=== PATIENT | male | born 1955 | race Caucasian/White ===

== ENCOUNTER 2021-11-09 16:40 | Emergency (ER) | payer MEDICARE, OTHER, SELFPAY ==
[2021-11-09 16:41] VITALS: BP 172/74; PULSE 72; RESP 16; TEMP 36.4; O2SAT 99; BMI 30.2
--- NOTE | 2021-11-09 17:02 | EX.ED.GUMALE ---
HPI History of Present Illness Chief Complaint: Complaint Informant: patient Pain Onset: Days Context: Gradual Onset Timing: Continuous Worsened by: Nothing Relieved by: Nothing Narrative Narrative: Patient presents with hematuria and lower abdominal pain that has been getting progressively worse over the past few days. Patient had bladder surgery 3 weeks ago to remove bladder cancer. Patient also had a ureteral stent placed at that time. Patient states he has been urinating blood and passing clots from his bladder. Patient states he has pain over the lower abdomen and lower back. Patient describes his pain as sharp at times but constant and aggravating. Patient patient also admits to some nausea and vomiting. Patient denies any hematemesis or coffee-ground emesis. Patient denies any melena or hematochezia. Patient denies any fevers or chills. Patient denies any dysuria. [facility] Medical History (Updated 11/09/21 @ 19:[address] Slim Eller DO) Bladder cancer Diabetes type 2, controlled Hypertension Situs inversus Home Medications aspirin 81 mg PO/SL DAILY 11/09/21 [History Last Taken Unknown] ciprofloxacin HCl 500 mg PO BID #20 tablet 11/09/21 [Rx Last Taken Unknown] glimepiride 2 mg PO BID 11/09/21 [History Last Taken Unknown] lisinopril 20 mg PO DAILY 11/09/21 [History Last Taken Unknown] metformin 500 mg PO BID 11/09/21 [History Last Taken Unknown] metoprolol succinate 50 mg PO DAILY 11/09/21 [History Last Taken Unknown] nitroglycerin 0.4 mg SUBLINGUAL Q5M PRN 11/09/21 [History Last Taken Unknown] semaglutide [Ozempic] 0.5 mg SUBCUT QWEEK 11/09/21 [History Last Taken Unknown] simvastatin 40 mg PO DAILY 11/09/21 [History Last Taken Unknown] Allergy/AdvReac Type Severity Reaction Status Date / Time niacin AdvReac Rash Verified 11/09/21 16:41 [From Niaspan Extended-Release] Surgical History (Updated 11/09/21 @ 17:[address] Slim Eller DO) Hx of arthroscopy of knee Hx of CABG Hx of cataract surgery Hx of cystoscopy S/P ureteral stent placement Social History Smoking Status: Never smoker ROS ROS ED Constitutional Constitutional ED: Denies chills or fever(s) Eyes Eyes: Denies blurry vision or change in vision ENT ENT ED: Denies rhinorrhea or sore throat Cardiovascular Cardiovascular: Denies chest pain or palpitations Respiratory/Chest Respiratory/Chest: Denies cough or dyspnea Gastrointestinal Gastrointestinal: Reports abdominal pain, diarrhea, nausea and vomiting; Denies melena Genitourinary Genitourinary ED: Reports hematuria; Denies dysuria Musculoskeletal Musculoskeletal: Reports back pain; Denies neck pain Integumentary Denies abscess or rash Neurologic Neurologic: Denies headache(s) or weakness Allergic/Immunologic Allergic/Immunologic ED: Denies mouth swelling or urticaria EXAM Physical Exam Const Vital Signs: 11/09/21 16:41 Temperature 97.6 F L Temperature Source Temporal Pulse Rate 72 Respiratory Rate 16 Blood Pressure 172/74 H Blood Pressure Mean 106 Pulse Ox 99 Oxygen Delivery Method Room Air Positive well nourished and well developed General Appearance ED: well developed HEENT Reports moist mucous membranes Neck supple and no JVD Resp normal respiratory effort and clear to auscultation bilaterally Cardio regular rate, regular rhythm and no murmurs GI normal to inspection, nondistended, normoactive bowel sounds and non-distended GI Narrative: There is suprapubic tenderness. There is no rebound or guarding noted. Bowel sounds are normal. Auscultation: normoactive bowel sounds Palpation: soft Rectal Exam: tenderness no CVA tenderness Extremity normal to inspection General Extremety ED: Negative for edema or tenderness General Extremity: Negative for edema Neuro oriented x3, CN's II-XII intact bilaterally and no sensory deficits noted Sensorium / Orientation: alert Motor Exam: strength 5/5 throughout Psych mental status grossly normal Skin no rashes or lesions noted MDM MDM MDM Narrative Medical decision making narrative: Patient was given IV fluids. Patient was given morphine and Zofran. Patient was given a dose of Rocephin here. CBC was within normal limits. PT was INR and PTT was within normal limits. Urinalysis shows a leukocyte esterases of 100 with 50-100 white blood cells. Occult blood was 250 with greater than 100 red blood cells. There is 2+ bacteria. Urine culture was ordered. CT scan of the abdomen pelvis was obtained. There is a right ureteral stent. There is mild pelviectasis and ureteral dilation. There is some periureteral stranding noted. This was interpreted by the radiologist and reviewed by myself. Patient was given a dose of Rocephin here. Patient is able to tolerate p.o. Patient was given a prescription for Cipro. Patient was instructed to follow-up with his urologist and primary care physician when he gets back home. Patient understood and was agreeable with the plan. All questions were answered. Lab Data Attestation: I reviewed the patient's lab results. Labs: Laboratory Results - last 24 hr 11/09/21 11/09/21 11/09/21 17:30 17:35 17:35 WBC 7.2 RBC 5.02 Hgb 14.6 Hct 42.9 MCV 85.5 MCH 29.1 MCHC 34.0 RDW Std Deviation 41.6 RDW Coeff of Nicola 13.3 Plt Count 205 MPV 11.4 Immature Gran % (Auto) 0.400 Neut % (Auto) 67.5 Lymph % (Auto) 23.1 [place] % (Auto) 6.6 Eos % (Auto) 2.0 Baso % (Auto) 0.4 Absolute Neuts (auto) 4.8 Absolute Lymphs (auto) 1.65 Nucleated RBC % 0 PT 13.3 INR 1.0 APTT 26.6 Sodium Potassium Chloride Carbon Dioxide Anion Gap BUN Creatinine Estim Creat Clear Calc Est GFR (MDRD) Af Amer Est GFR (MDRD) Non-Af BUN/Creatinine Ratio Glucose Calcium Total Bilirubin AST ALT Alkaline Phosphatase Total Protein Albumin Globulin Albumin/Globulin Ratio Urine Color Red Urine Clarity Cloudy Urine pH 5.0 Ur Specific [place] 1.020 Urine Protein 100 H Urine Glucose (UA) 250 H Urine Ketones 5 H Urine Occult Blood 250 H Urine Nitrite Negative Urine Bilirubin Negative Urine Urobilinogen Normal Ur Leukocyte Esterase 100 H Urine RBC > 100 SEEN Urine WBC 50-100 SEEN Ur Squamous Epith Cells 0-5 SEEN Urine Bacteria 2+ Urine Mucus 0 SEEN 11/09/21 17:35 WBC RBC Hgb Hct MCV MCH MCHC RDW Std Deviation RDW Coeff of Nicola Plt Count MPV Immature Gran % (Auto) Neut % (Auto) Lymph % (Auto) [place] % (Auto) Eos % (Auto) Baso % (Auto) Absolute Neuts (auto) Absolute Lymphs (auto) Nucleated RBC % PT INR APTT Sodium 138 Potassium 4.1 Chloride 106 Carbon Dioxide 28.0 Anion Gap 4 L BUN 10 Creatinine 1.12 Estim Creat Clear Calc 59.02 Est GFR (MDRD) Af Amer 84 Est GFR (MDRD) Non-Af 69 BUN/Creatinine Ratio 8.9 L Glucose 237 H Calcium 9.8 Total Bilirubin 0.70 AST 20 ALT 35 Alkaline Phosphatase 43 L Total Protein 7.1 Albumin 3.5 Globulin 3.6 Albumin/Globulin Ratio 1.0 Urine Color Urine Clarity Urine pH Ur Specific [place] Urine Protein Urine Glucose (UA) Urine Ketones Urine Occult Blood Urine Nitrite Urine Bilirubin Urine Urobilinogen Ur Leukocyte Esterase Urine RBC Urine WBC Ur Squamous Epith Cells Urine Bacteria Urine Mucus Radiography Diagnostic Testing: Clinical Impression(s) from Imaging Studies Abdomen/Pelvis CT 11/09/21 17:10 IMPRESSION: 1. Right internal ureteral stent with mild persistent pelviectasis and ureteral dilatation and surrounding inflammatory stranding. No visualized radiopaque stones of either kidney. No visualized radiopaque stones in the bladder lumen. 2. Large 3.58 cm gallstone. Electronically Signed: Uche Harrington MD at 18:19 EDT Reading Location ID and State: [address] [place] [address] , Service support , Discharge Plan Triage Chief Complaint: Complaint ED Provider: Slim Eller Dx/Rx/DC Orders Clinical Impression: Urinary tract infection, Hematuria Instructions: ED Urinary Tract Infections in Men Prescriptions: New ciprofloxacin HCl [ciprofloxacin HCl] 500 MG tablet 500 mg PO BID Qty: 20 RF: 0 No Action metoprolol succinate 50 mg Tablet Extended Release 24 Hr 50 mg PO DAILY RF: 0 simvastatin 40 mg Tablet 40 mg PO DAILY RF: 0 glimepiride 2 mg Tablet 2 mg PO BID RF: 0 metformin 500 mg Tablet Extended Release 24 Hr 500 mg PO BID RF: 0 lisinopril 20 mg Tablet 20 mg PO DAILY RF: 0 aspirin 81 mg PO/SL DAILY RF: 0 nitroglycerin 0.4 mg Tablet, Sublingual 0.4 mg SUBLINGUAL Q5M PRN (Reason: Chest Pain) RF: 0 Ozempic 0.25 mg or 0.5 mg(2 mg/1.5 mL) Pen Injector 0.5 mg SUBCUT QWEEK RF: 0 Referrals: Cole,Idopise E [Other] - 3-5 Days Disposition Disposition: Home, Self Care
--- NOTE | 2021-11-09 17:10 | CT_ITS ---
STUDY: CT ABDOMEN AND PELVIS WITHOUT CONTRAST REASON FOR EXAM: Male, 66 years old. Hematuria SITUS INVERSUS SURG-BLADDER GROWTH REMOVED, LEFT URETERAL STENT HX-BLADDER CA RADIATION DOSAGE (If Supplied By Facility): CTDIvol = ( 12.14 ) mGy, DLP = ( 621.62 ) mGycm TECHNIQUE: Transaxial images were obtained from the dome of the diaphragm to the symphysis pubis without oral contrast, and without intravenous contrast. Sagittal and coronal images were reconstructed. Individualized dose optimization techniques were used for this CT. COMPARISON: None. FINDINGS: Situs inversus. The visualized lung bases are unremarkable. The visualized portions of the heart are within normal limits. Normal liver. Large 3.58 cm peripherally calcified gallstone. Normal spleen. Normal pancreas. Normal bilateral adrenal glands. Right internal ureteral stent with mild persistent pelviectasis and ureteral dilatation and surrounding inflammatory stranding. No visualized radiopaque stones of either kidney. No visualized radiopaque stones in the bladder lumen. Small cortical-based cyst of the left kidney noted which does not require any additional imaging. Normal left kidney. Normal visualized stomach. Normal small intestine. There are multiple colonic diverticula consistent with diverticulosis. The appendix is visualized and appears normal. There is diffuse atherosclerotic calcification of the abdominal aorta, without a demonstrated aneurysm. Normal inferior vena cava. Normal retroperitoneum. Normal urinary bladder. There are prostatic calcifications. Normal abdominal wall. There are diffuse degenerative changes of the visualized lumbar spine. CT/Abdomen/Pelvis without Cont IMPRESSION: 1. Right internal ureteral stent with mild persistent pelviectasis and ureteral dilatation and surrounding inflammatory stranding. No visualized radiopaque stones of either kidney. No visualized radiopaque stones in the bladder lumen. 2. Large 3.58 cm gallstone. Electronically Signed: Uche Harrington MD at 18:19 EDT Reading Location ID and State: [facility] / [place] , Service support ,
[2021-11-09] MEDS: 0.9% Normal Saline 1,000 ML 1000 ML IV (17:35)
[2021-11-09 17:45] LABS: Mucous, Urine 0 SEEN /hpf (<or=2+)
[2021-11-09 17:50] LABS: Absolute Lymphocyte Count 1.65 X10^3/uL (0.83-4.51); Absolute Neutrophil Count 4.8 X10^3/uL (2.0-7.7); Basophil# 0.03 X10^3/uL; Basophil% 0.4 % (0-1); Eosinophil# 0.14 X10^3/uL; Hematocrit 42.9 % (40-54); Hemoglobin 14.6 g/dL (13.0-16.5); Lymphocyte # 1.65 X10^3/ul (0.83-4.51); Lymphocyte % 23.1 % (19-41); Mean Corpuscular Hgb 29.1 pg (27.0-32.0); Mean Corpuscular Volume 85.5 fL (80-94); Mean Platelet Vol. 11.4 fl (6.2-12.0); Monocyte# 0.47 X10^3/uL; Monocyte% 6.6 % (0-10); NRBC Flagged by Analyzer 0 % (0-5); Neutrophil # 4.83 X10^3/uL (2.7-7.7); Neutrophil % 67.5 % (47-70); Platelet Count 205 K/mm3 (150-450); RBC Distribution Width CV 13.3 % (11.6-14.6); RBC Distribution Width SD 41.6 fl (35.1-43.9); Red Blood Count 5.02 M/mm3 (4.6-6.2); White Blood Count 7.2 K/mm3 (4.4-11.0)
[2021-11-09 17:52] LABS: Color, Urine Red (Yellow); Glucose, Dipstick 250 mg/dl (Normal); Ketone-Dipstick 5 mg/dl (Negative); Leukocyte Esterase-Dipstick 100 /ul (Negative); Nitrite-Dipstick Negative (Negative); Occult Blood-Urine 250 /ul (Negative); Protein-Dipstick 100 mg/dl (Negative); Urine Bilirubin Dipstick Negative (Negative); Urine Clarity Cloudy (Clear); Urine Urobilinogen Normal (Normal)
[2021-11-09 18:05] LABS: AST(SGOT) 20 U/L (15-37); Alanine Aminotransfer ALT/SGPT 35 U/L (16-61); Albumin, Serum 3.5 g/dL (3.2-5.0); Alkaline Phosphatase 43 U/L (45-117); Anion Gap 4 (5-15); BUN 10 mg/dL (7-18); BUN/Creat Ratio 8.9 RATIO (10-20); Calcium,Total 9.8 mg/dL (8.5-10.1); Chloride 106 mmol/L (98-107); Creatinine, Serum 1.12 mg/dL (0.70-1.30); EST Glomerular Filtration Rate 69 mL/min (>60); Est Glom Filt Rate - Afr Amer 84 mL/min (>60); Estimated Creatinine Clearance 59.02 ml/min; Globulin 3.6 g/dL (2.2-4.2); Glucose 237 mg/dL (74-106); Potassium 4.1 mmol/L (3.5-5.1); Protein, Total 7.1 g/dL (6.4-8.2); Sodium Level 138 mmol/L (136-145)
[2021-11-09 18:11] LABS: Prothrombin Time (Protime)PT. 13.3 SECONDS (11.7-14.9)
[2021-11-09 18:12] LABS: Partial Thromboplast Time 26.6 Seconds (24.1-36.2)
[2021-11-09 18:15] LABS: Red Blood Cells-Urine > 100 SEEN /hpf (0-5)
[2021-11-09 18:16] LABS: Bacteria 2+ /hpf (None Seen); Squamous Epithelial Cells - UA 0-5 SEEN /hpf (0-5); White Blood Cells 50-100 SEEN /hpf (0-5)
[2021-11-09] MEDS: Ceftriaxone 1 GM/50 ML BAG IV (19:22)
[2021-11-09] MEDS: Morphine 4 MG/ML Syringe IV (19:37)
[2021-11-09] MEDS: Ondansetron 4 MG/2 ML Vial IV (19:37)
[2021-11-09 21:02] VITALS: BP 154/74; PULSE 74; RESP 16; O2SAT 97
== END 2021-11-09 21:04 | disposition home or self-care (01) ==
PROVIDERS: Emergency Provider Emergency Medicine; Visit Provider Emergency Medicine
DX: N39.0 Urinary tract infection, site not specified (principal); E11.9 Type 2 diabetes mellitus without complications; I10 Essential (primary) hypertension; Z85.51 Personal history of malignant neoplasm of bladder; Z79.84 Long term (current) use of oral hypoglycemic drugs; Z79.82 Long term (current) use of aspirin; Z79.899 Other long term (current) drug therapy; Z95.1 Presence of aortocoronary bypass graft; Z96.0 Presence of urogenital implants
CPT/HCPCS: 74176; 80053; 81001; 85025; 85610; 85730; 87086; 96361; 96365; 96375; 99284; J7030; A4216; J2405